=== PATIENT | female | born 1990 | race Two or more races ===

== ENCOUNTER 2019-01-16 16:52 | Emergency (ER) | payer OTHER ==
[~2019-01-16] VITALS: Ht 157.5 cm; Wt 68.0 kg
[2019-01-16 16:53] VITALS: BP 141/89
[2019-01-16] MEDS ORDERED: CYCL10TA2 PO (17:28)
[2019-01-16] MEDS ORDERED: METH4TAB2 PO (17:28)
[2019-01-16] MEDS ORDERED: DICL50TA4 PO (17:28)
--- NOTE | 2019-01-16 17:29 | PHYS DOC ---
Past Medical History Past Medical History: No Pertinent History (ARNOLD GIMENEZ APRN) Past Surgical History: , Tubal ligation Additional Past Surgical Histo: right knee (ARNOLD GIMENEZ APRN) Alcohol Use: None Drug Use: None (ARNOLD GIMENEZ APRN) Adult General Chief Complaint Chief Complaint: SHOUDLER HPI HPI Patient is a 28 year old female in a significant medical history who presents today complaining of a sharp intermittent 5/10 left shoulder pain that has been going on for the last 3 months. Patient states the pain is worse when she raises her left shoulder up. Patient denies any known injury. 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 Patient states occasionally her left fingers will get numb. Denies any tingling sensation. She states she has not taken anything specifically to relieve the pain. (ARNOLD GIMENEZ APRN) Review of Systems Review of Systems Constitutional: Denies fever or chills [] Musculoskeletal: Reports left shoulder pain Integument: Denies rash or skin lesions [] Neurologic: Denies headache, focal weakness or sensory changes [] All other systems were reviewed and found to be within normal limits, except as documented in this note. (ARNOLD GIMENEZ APRN) Allergies Allergies Allergies Coded Allergies Type Severity Reaction Last Updated Verified No Known Drug Allergies 01/16/19 No (VELIA TORRES MD) Physical Exam Physical Exam Constitutional: Well developed, well nourished, no acute distress, non-toxic appearance. [] Skin: Warm, dry, no erythema, no rash. [] Back: No tenderness, no CVA tenderness. [] Extremities: Left shoulder with no obvious deformity, no edema and no ecchymosis , no tenderness, full range of motion to the left shoulder. Neurovascular exam is intact to the left upper extremity. +2 left radial pulse. Cap refill less than 2 seconds and left fingers. Neurologic: Alert and oriented X 3, normal motor function, normal sensory function, no focal deficits noted. [] Psychologic: Affect normal, judgement normal, mood normal. [] (ARNOLD GIMENEZ APRN) Current Patient Data Vital Signs Vital Signs Date Time Temp Pulse Resp B/P (MAP) Pulse Ox O2 Delivery O2 Flow Rate FiO2 01/16/19 16:53 98.8 72 18 141/89 (106) 98 Room Air 98.8 (VELIA TORRES MD) EKG EKG [] (ARNOLD GIMENEZ APRN) Radiology/Procedures Radiology/Procedures [] (ARNOLD GIMENEZ APRN) Course & Med Decision Making Course & Med Decision Making Pertinent Labs and Imaging studies reviewed. (See chart for details) This is a 28-year-old female patient presenting to the ED today with left shoulder pain for the last 3 months, no known injury. Patient was given prescription for cyclobenzaprine, Medrol Dosepak, diclofenac. Ice elevation encouraged. Follow-up with the workman comp because she believes this is a work- related pain, see HPI. Provided orthopedic doctor for follow-up (ARNOLD GIMENEZ APRN) Course & Med Decision Making Staff Physician Addendum: I was working in the ER during the course of this patient's visit. I was available for consultation as needed, but I was not directly involved in the care of this patient. (VELIA TORRES MD) Dragon Disclaimer Dragon Disclaimer This electronic medical record was generated, in whole or in part, using a voice recognition dictation system. (ARNOLD GIMENEZ APRN) Departure Departure Impression: Primary Impression: Left shoulder pain Disposition: 01 HOME, SELF-CARE Condition: STABLE Referrals: NO PCP (PCP) MAGNOLIA FRANKLIN MD follow up in 1 week Patient Instructions: Shoulder Pain, [id number] Additional Instructions: You were evaluated in the emergency room for left shoulder pain. Please follow- up with your job's workman comp. We also provided you an orthopedic doctor you can follow up with them as an out patient. Try to ice and elevate the extremity. Scripts Methylprednisolone (MEDROL) 4 Mg Tab.ds.pk 1 PKG PO UD, #1 PKG Prov: ARNOLD GIMENEZ APRN 01/16/19 Diclofenac Sodium (DICLOFENAC SODIUM) 50 Mg Tablet.dr 1 TAB PO BID, #20 TAB 0 Refills Prov: ARNOLD GIMENEZ APRN 01/16/19 Cyclobenzaprine Hcl (CYCLOBENZAPRINE HCL) 10 Mg Tablet 1 TAB PO TID, #90 TAB Prov: ARNOLD GIMENEZ APRN 01/16/19 Problem Qualifiers Primary Impression: Left shoulder pain Chronicity: acute Qualified Codes: M25.512 - Pain in left shoulder ARNOLD GIMENEZ APRN Jan 16, 2019 17:28 VELIA TORRES MD Jan 19, 2019 06:13
== END 2019-01-16 17:34 | disposition home or self-care (01) ==
LOC: ER 16:52
DX: M25.512 Pain in left shoulder (principal); G89.11 Acute pain due to trauma; X50.3XXA Overexertion from repetitive movements, initial encounter; Y93.89 Activity, other specified; Y92.69 Other specified industrial and construction area as the place of occurrence of the external cause; Y99.0 Civilian activity done for income or pay
CPT/HCPCS: 99283

== ENCOUNTER 2019-01-20 10:03 | Emergency (ER) | payer OTHER ==
[~2019-01-20] VITALS: Ht 157.5 cm; Wt 68.0 kg
[~2019-01-20 10:03] MED LIST: CYCL10TA2 PO; DICL50TA4 PO; METH4TAB2 PO
--- NOTE | 2019-01-20 10:31 | PHYS DOC ---
Past Medical History Past Medical History: No Pertinent History Past Surgical History: , Tubal ligation Additional Past Surgical Histo: right knee Alcohol Use: Occasionally Drug Use: None Adult General Chief Complaint Chief Complaint: NAUSEA/VOMITING/DIARRHA HPI HPI Patient is a 28 year old female with no significant medical history who presents to the ED today complaining of diarrhea that began 3 days ago and vomiting that began yesterday. Patient is also complaining of bilateral upper abdominal pain described as burning and intermittent. Patient denies any fever. Denies any hematemesis or melena. Denies any chance she is , she states her tubes are tied. Review of Systems Review of Systems Constitutional: Denies fever or chills [] Eyes: Denies change in visual acuity, redness, or eye pain [] HENT: Denies nasal congestion or sore throat [] Respiratory: Denies cough or shortness of breath [] Cardiovascular: No additional information not addressed in HPI [] GI: Reports abdominal pain, nausea vomiting and diarrhea : Denies dysuria or hematuria [] Musculoskeletal: Denies back pain or joint pain [] Integument: Denies rash or skin lesions [] Neurologic: Denies headache, focal weakness or sensory changes [] All other systems were reviewed and found to be within normal limits, except as documented in this note. Current Medications Current Medications Current Medications Medications (Trade) Dose Ordered Sig/Layne Start Time Stop Time Status Last Admin Dose Admin Ondansetron HCl (Zofran) 4 mg 1X ONCE 01/20/19 10:45 01/20/19 10:46 DC 01/20/19 10:42 4 MG Allergies Allergies Allergies Coded Allergies Type Severity Reaction Last Updated Verified No Known Drug Allergies 01/16/19 No Physical Exam Physical Exam Constitutional: Well developed, well nourished, no acute distress, non-toxic appearance. [] HENT: Normocephalic, atraumatic, bilateral external ears normal, oropharynx moist, no oral exudates, nose normal. [] Eyes: PERRLA, EOMI, conjunctiva normal, no discharge. [] Neck: Normal range of motion, no tenderness, supple, no stridor. [] Cardiovascular:Heart rate regular rhythm, no murmur [] Lungs & Thorax: Bilateral breath sounds clear to auscultation [] Abdomen: Bowel sounds normal, soft, no tenderness, no masses, no pulsatile masses. [] Skin: Warm, dry, no erythema, no rash. [] Back: No tenderness, no CVA tenderness. [] Extremities: No tenderness, no cyanosis, no clubbing, ROM intact, no edema. [] Neurologic: Alert and oriented X 3, normal motor function, normal sensory function, no focal deficits noted. [] Psychologic: Affect normal, judgement normal, mood normal. [] Current Patient Data Vital Signs Vital Signs Date Time Temp Pulse Resp B/P (MAP) Pulse Ox O2 Delivery O2 Flow Rate FiO2 01/20/19 10:03 98.1 80 18 127/80 (96) 96 Room Air 98.1 Lab Values Laboratory Tests Test 01/20/19 10:15 01/20/19 10:17 01/20/19 10:35 Urine Collection Type Unknown Urine Color Yellow Urine Clarity Clear Urine pH 5.0 Urine Specific [place] 1.020 Urine Protein Negative mg/dL (NEG-TRACE) Urine Glucose (UA) Negative mg/dL (NEG) Urine Ketones (Stick) Negative mg/dL (NEG) Urine Blood Moderate (NEG) Urine Nitrite Negative (NEG) Urine Bilirubin Negative (NEG) Urine Urobilinogen Dipstick 0.2 mg/dL (0.2 mg/dL) Urine Leukocyte Esterase Negative (NEG) Urine RBC Occ /HPF (0-2) Urine WBC Occ /HPF (0-4) Urine Squamous Epithelial Cells Mod /LPF Urine Bacteria 0 /HPF (0-FEW) Urine Mucus Marked /LPF POC Urine HCG, Qualitative Hcg negative (Negative) White Blood Count 11.5 x10^3/uL (4.0-11.0) H Red Blood Count 4.60 x10^6/uL (3.50-5.40) Hemoglobin 13.7 g/dL (12.0-15.5) Hematocrit 40.4 % (36.0-47.0) Mean Corpuscular Volume 88 fL (79-100) Mean Corpuscular Hemoglobin 30 pg (25-35) Mean Corpuscular Hemoglobin Concent 34 g/dL (31-37) Red Cell Distribution Width 13.1 % (11.5-14.5) Platelet Count 315 x10^3/uL (140-400) Neutrophils (%) (Auto) 72 % (31-73) Lymphocytes (%) (Auto) 20 % (24-48) L Monocytes (%) (Auto) 5 % (0-9) Eosinophils (%) (Auto) 3 % (0-3) Basophils (%) (Auto) 0 % (0-3) Neutrophils # (Auto) 8.3 x10^3uL (1.8-7.7) H Lymphocytes # (Auto) 2.2 x10^3/uL (1.0-4.8) Monocytes # (Auto) 0.6 x10^3/uL (0.0-1.1) Eosinophils # (Auto) 0.3 x10^3/uL (0.0-0.7) Basophils # (Auto) 0.0 x10^3/uL (0.0-0.2) Sodium Level 140 mmol/L (136-145) Potassium Level 3.3 mmol/L (3.5-5.1) L Chloride Level 103 mmol/L (98-107) Carbon Dioxide Level 27 mmol/L (21-32) Anion Gap 10 (6-14) Blood Urea Nitrogen 7 mg/dL (7-20) Creatinine 0.7 mg/dL (0.6-1.0) Estimated GFR (Cockcroft-Gault) 98.9 BUN/Creatinine Ratio 10 (6-20) Glucose Level 93 mg/dL (70-99) Calcium Level 8.2 mg/dL (8.5-10.1) L Total Bilirubin 0.6 mg/dL (0.2-1.0) Aspartate Amino Transferase (AST) 12 U/L (15-37) L Alanine Aminotransferase (ALT) 24 U/L (14-59) Alkaline Phosphatase 105 U/L (46-116) Total Protein 7.2 g/dL (6.4-8.2) Albumin 3.5 g/dL (3.4-5.0) Albumin/Globulin Ratio 0.9 (1.0-1.7) L Lipase 68 U/L (73-393) L Laboratory Tests 01/20/19 10:35 Laboratory Tests 01/20/19 10:35 EKG EKG [] Radiology/Procedures Radiology/Procedures []PROCEDURE: ABDOMEN COMPLETE Realtime grayscale grayscale and color DOPPLER ultrasonography of the abdomen was performed. History: Abdominal pain, nausea, vomiting Comparison: None. Findings: The liver is normal in appearance and echogenicity. It measures 16.5 cm. No intrahepatic biliary ductal dilatation or mass is seen. No gallstones, pericholecystic fluid, or gallbladder wall thickening are seen. The common bile duct is normal in diameter and measures 0.5 cm. Portal Vein flow is hepatopetal. The pancreas is normal in appearance, although the tail is not well visualized. The IVC and aorta are unremarkable at the level of the liver. The maximum diameter of the aorta is 1.7 cm in the proximal portion of the aorta. The right kidney is normal in appearance, measuring 10.7 x 5.3 x 5.6 cm in length. The left kidney is normal in appearance, measuring 11.8 x 5.7 x 5.6 cm in length. No hydronephrosis or perinephric fluid are seen bilaterally. The spleen is normal in appearance and measures 10.0 cm. Impression: Unremarkable ultrasound examination of the abdomen. Electronically signed by: Ty Caldera MD (01/20/2019 11:25 AM) [facility] DICTATED and SIGNED BY: TY CALDERA MD DATE: 01/20/19 1125 Course & Med Decision Making Course & Med Decision Making Pertinent Labs and Imaging studies reviewed. (See chart for details) This is a 28-year-old female patient presenting to the ED today with diarrhea, vomiting, nausea, symptoms began 3 days ago. Also complaining of generalized abdominal pain. Negative urine hCG, urine analysis is negative for infection. CBC with a WBC of 11.5, CMP with potassium of 3.3 patient was given oral potassium replacement in the ED. Abdominal ultrasound is negative for any acute findings. Patient's symptoms are likely viral. Instructed to push fluids, maintain good hand hygiene. Discharged with Zofran. Follow-up with primary care doctor in 1-2 weeks. Dragon Disclaimer Dragon Disclaimer This electronic medical record was generated, in whole or in part, using a voice recognition dictation system. Departure Departure Impression: Primary Impression: Nausea and vomiting Additional Impressions: Diarrhea Abdominal pain Hypokalemia Disposition: 01 HOME, SELF-CARE Condition: STABLE Referrals: NO PCP (PCP) ALDA SHAW MD follow up in 1 week Patient Instructions: Diarrhea, [id number], Nausea and Vomiting, [id number] Additional Instructions: You were seen in the emergency room for nausea, vomiting, diarrhea and abdominal pain. Your symptoms are likely viral. Push fluids. Maintain good hand hygiene. Take the prescribed Zofran as needed for nausea, vomiting. Come back to the ED at any point symptoms worsen others follow-up with your own doctor. Scripts Ondansetron (ONDANSETRON ODT) 4 Mg Tab.rapdis 1 TAB PO PRN Q6-8HRS, #16 TAB Prov: ARNOLD GIMENEZ FI[employer] 01/20/19 Problem Qualifiers Primary Impression: Nausea and vomiting Vomiting type: unspecified Vomiting Intractability: non-intractable Qualified Codes: R11.2 - Nausea with vomiting, unspecified Additional Impressions: Diarrhea Diarrhea type: unspecified type Qualified Codes: R19.7 - Diarrhea, unspecified Abdominal pain Abdominal location: upper abdomen, unspecified Qualified Codes: R10.10 - Upper abdominal pain, unspecified SIERRASHREEARNOLD FIELD LABORER Jan 20, 2019 10:31
[2019-01-20 10:42] LABS: BILIRUBIN,URINE NEGATIVE (NEG); CLARITY,URINE CLEAR; COLOR,URINE YELLOW; NITRITE,URINE NEGATIVE (NEG); PROTEIN,URINE NEGATIVE (NEG-TRACE); UROBILINOGEN,URINE 0.2 mg/dL (0.2 mg/dL)
[2019-01-20 10:43] LABS: BASO % 0 % (0-3); EOS # 0.3 x10^3/uL (0.0-0.7); EOS % 3 % (0-3); HEMATOCRIT 40.4 % (36.0-47.0); HEMOGLOBIN 13.7 g/dL (12.0-15.5); LYMPH # 2.2 x10^3/uL (1.0-4.8); LYMPH % 20 % (24-48); MEAN CORPUSCULAR HEMOGLOBIN 30 pg (25-35); MEAN CORPUSCULAR HGB CONC 34 g/dL (31-37); MEAN CORPUSCULAR VOLUME 88 fL (79-100); MONO # 0.6 x10^3/uL (0.0-1.1); MONO % 5 % (0-9); NEUT # 8.3 x10^3uL (1.8-7.7); NEUT % 72 % (31-73); PLATELET COUNT 315 x10^3/uL (140-400); RED CELL DISTRIBUTION WIDTH 13.1 % (11.5-14.5); WHITE BLOOD COUNT 11.5 x10^3/uL (4.0-11.0)
[2019-01-20] MEDS ORDERED: ONDANSETRON PF 4 MG/2 ML VIAL. IV ONE (10:45)
[2019-01-20 10:54] LABS: SQUAMOUS EPITHELIAL CELL,UR MOD /LPF
[2019-01-20 10:55] LABS: BACTERIA,URINE 0 /HPF (0-FEW); RBC,URINE OCC /HPF (0-2); WBC,URINE OCC /HPF (0-4)
[2019-01-20 10:55] LABS: CALCIUM 8.2 mg/dL (8.5-10.1); CREATININE 0.7 mg/dL (0.6-1.0); GFR 98.9; POTASSIUM 3.3 mmol/L (3.5-5.1)
[2019-01-20 11:01] LABS: ALBUMIN 3.5 g/dL (3.4-5.0); ALBUMIN/GLOBULIN RATIO 0.9 (1.0-1.7); TOTAL BILIRUBIN 0.6 mg/dL (0.2-1.0); TOTAL PROTEIN 7.2 g/dL (6.4-8.2)
--- NOTE | 2019-01-20 11:28 | RAD ---
Realtime grayscale grayscale and color DOPPLER ultrasonography of the abdomen was performed. History: Abdominal pain, nausea, vomiting Comparison: None. Findings: The liver is normal in appearance and echogenicity. It measures 16.5 cm. No intrahepatic biliary ductal dilatation or mass is seen. No gallstones, pericholecystic fluid, or gallbladder wall thickening are seen. The common bile duct is normal in diameter and measures 0.5 cm. Portal Vein flow is hepatopetal. The pancreas is normal in appearance, although the tail is not well visualized. The IVC and aorta are unremarkable at the level of the liver. The maximum diameter of the aorta is 1.7 cm in the proximal portion of the aorta. The right kidney is normal in appearance, measuring 10.7 x 5.3 x 5.6 cm in length. The left kidney is normal in appearance, measuring 11.8 x 5.7 x 5.6 cm in length. No hydronephrosis or perinephric fluid are seen bilaterally. The spleen is normal in appearance and measures 10.0 cm. Impression: Unremarkable ultrasound examination of the abdomen. Electronically signed by: Ty Flynn MD (01/20/2019 11:25 AM) [facility]
[2019-01-20] MEDS ORDERED: ONDA4TAB12 PO (11:41)
[2019-01-20] MEDS ORDERED: POTASSIUM CHLORIDE 20 MEQ TABLET.ER. PO ONE (12:00)
[2019-01-20 12:05] VITALS: BP 103/63
== END 2019-01-20 12:10 | disposition home or self-care (01) ==
LOC: ER 10:03
DX: R19.7 Diarrhea, unspecified (principal); R11.2 Nausea with vomiting, unspecified; R10.11 Right upper quadrant pain; R10.12 Left upper quadrant pain; E87.6 Hypokalemia; Z98.51 Tubal ligation status
CPT/HCPCS: 36415; 76700; 80053; 81001; 81025; 83690; 85025; 96374; 99284; J2405